=== PATIENT | female | born 1990 | race Caucasian/White ===

== ENCOUNTER → 2025-01-21 09:58 | Outpatient (REF) | payer OTHER, SELFPAY | LOC: WDC 09:58 | PROVIDERS: ATTENDING PHYSICIAN Family Medicine | DX: R59.9 Enlarged lymph nodes, unspecified (principal); R22.32 Localized swelling, mass and lump, left upper limb; N63.32 Unspecified lump in axillary tail of the left breast | CPT/HCPCS: 76642; 77062; 77066 ==